=== PATIENT | male | born 1965 | race Caucasian/White ===

== ENCOUNTER 2017-04-29 09:41 | Day surgery (SDC) | payer OTHER ==
[~2017-04-29] VITALS: Ht 165.1 cm; Wt 83.6 kg
[~2017-04-29 09:41] MED LIST: 0.9% Sodium Chloride 1,000 ML IV SCH; ACET125T3 PO; ALBU90AE IH; FLUT12AE10 IH; OMEP20CA11 PO; Sodium Chloride LOK Flush 10 mL Syringe IV PRN; fentaNYL-PF 50 mCg/mL 2 mL Inj IVPUSH PRN
[2017-04-29] MEDS ORDERED: fentaNYL-PF 50 mCg/mL 2 mL Inj IVPUSH ONE (09:42)
[2017-04-29] MEDS ORDERED: FLUT9.9S NS (10:15)
[2017-04-29] MEDS ORDERED: VIAG25T PO (10:15)
[2017-04-29] MEDS ORDERED: IBUP800T28 PO (10:15)
[2017-04-29] MEDS ORDERED: FLUT50DI IH (10:15)
[2017-04-29 10:17] VITALS: BP 140/86; PULSE 71; RESP 14; O2SAT 96
[2017-04-29 11:42] VITALS: BP 142/77; PULSE 73; RESP 16; O2SAT 96
[2017-04-29 11:52] VITALS: BP 136/83; PULSE 70; RESP 16; O2SAT 96
[2017-04-29 12:03] VITALS: BP 119/69; PULSE 68; RESP 16; O2SAT 96
--- NOTE | 2017-04-29 15:54 | ENDO ---
[address] [address] ENDOSCOPY PROCEDURE PATIENT: RADHA BASS : 1965 MR#: [id number] ADMIT: 04/29/2017 JOB ID: [id number] DATE: 04/29/2017 PROCEDURE: Colonoscopy. INDICATION: Patient with a history of a personal history of colon polyps. The patient's ASA classification is 1. Mallampati score was 1. MEDICATIONS: 1. Versed 4 mg. 2. Fentanyl 100 mcg. INSTRUMENT USED: PCF H 180 AL. PREPARATION QUALITY: Was good. PROCEDURE DETAILS: After informed consent was obtained, the patient was brought into the GI suite, where he was placed on oxygen via nasal cannula and monitored with continuous pulse oximeter, telemetry and blood pressure monitoring. A time-out was performed. Then, he was placed in the left lateral decubitus position and medications were administered for sedation. Digital rectal exa was performed with palpation of the prostate which revealed an enlarged prostate but no palpable masses. The colonoscope was then inserted into the rectum and advanced under direct visualization to the cecum, which was identified by the presence of the ileocecal valve and appendiceal orifice. Once the cecum was reached, the colonoscope was withdrawn back into the rectum as the mucosa and lumen were examined. In the rectum, retroflexion was performed. Following retroflexion, remaining air in the rectum was suctioned and procedure was completed. FINDINGS: Normal examination from rectum to cecum. IMPRESSION: Normal colonoscopy. RECOMMENDATIONS: Repeat colonoscopy in five years, sooner if symptoms should dictate. COMPLICATIONS: None. ESTIMATED BLOOD LOSS: 0.
== END 2017-04-29 23:59 | disposition home or self-care (01) ==
LOC: END 09:41
PROVIDERS: ATTEND Internal Medicine Gastroenterology
DX: Z12.11 Encounter for screening for malignant neoplasm of colon (principal); Z86.010 Personal history of colon polyps; I10 Essential (primary) hypertension; E78.5 Hyperlipidemia, unspecified; J45.20 Mild intermittent asthma, uncomplicated; Z85.828 Personal history of other malignant neoplasm of skin
CPT/HCPCS: G0105; G0500; J2250; J3010; J7030